=== PATIENT | female | born 1945 | race Caucasian/White ===

== ENCOUNTER 2025-01-29 16:46 | Inpatient (IN) | payer MEDICARE, OTHER, SELFPAY ==
[2025-01-29] VITALS (9 sets, daily range): BP systolic 135–162; BP diastolic 78–97
--- NOTE | 2025-01-29 12:54 | ED.GENMED ---
History of Present Illness
General
Chief Complaint: Rectal Bleeding
Source: patient
Time Seen by Provider: 01/29/25 12:40
History of Present Illness
History of Present Illness:
79-year-old female presents emergent complaining of abdominal pain, rectal bleeding. Patient began feeling unwell last evening with some abdominal cramping followed by loose stools. Early this morning she developed significant cramping and noted
bloody diarrhea. She was going the bathroom every 30 minutes. She did not feel she had a fever. She denies any nausea or vomiting. The frequency of the bloody stool has decreased somewhat to every hour. She does not take any oral
anticoagulants. She did have 1 previous episode of bloody stool which was determined to be related to an infection. She does have regular colonoscopies.
Phy Exam
Physical Exam
Physical Exam:
General: Awake, Alert, Oriented X3. No acute distress.
Vitals: Mildly hypertensive
Head: Atraumatic
Eyes: Pupils equal, EOMI
Throat: Airway intact, no exudates
Neck: Trachea midline
Lungs: Clear and equal b/l
Heart: Regular rate, no murmurs
Abd: Soft, no reproducible abdominal tenderness, No pulsatile mass
Neuro: Nonfocal
Skin: Warm, dry, no rash
Extremities: pulses equal b/l, no edema
Course
Orders/Labs/Results
Orders:
Orders
01/29/25 12:52
Cardiac Monitoring- Treatment ONCE
0.9% Sodium Chloride 500 ml [Nss] 500 ml IV BOLUS
01/29/25 12:53
Electrocardiogram (*1) Stat
Reason for Study: Abdominal Pain
CT Abd/Pel (IV only)-DH only Urgent
Comment:
Reason For Exam: abd pain, bloody stool
EKG- Treatment ONCE
01/29/25 13:38
Complete Blood Count/With Diff Urgent
Comprehensive Metabolic Panel Urgent
Lactic Acid Urgent
Lipase Urgent
01/29/25 13:51
STOOL [C difficile Antigen & Toxins] Urgent
LUISA Source: Feces/Stool
Specimen Description:
Date Specimen was Collected: 01/29/25
Time Specimen was Collected: 13:48
Stool Culture Urgent
LUISA Source: Feces/Stool
Specimen Description:
Date Specimen was Collected: 01/29/25
Time Specimen was Collected: 13:48
01/29/25 15:33
Urinalysis Reflex To Culture Urgent
Date Specimen was Collected: 01/29/25
Time Specimen was Collected: 13:48
01/29/25 15:54
CefTRIAXone [Rocephin] 1,000 mg IV NOW STA
MetroNIDAZOLE 500 MG/100 ML [Flagyl 500 mg] 100 ml IV NOW
01/29/25 16:03
HYDROmorphone [Dilaudid] 0.5 mg IV NOW STA
01/29/25 16:16
Sterile Water [Sterile Water For Injection] 10 ml .ROUTE .STK-MED ONE
01/29/25 16:30
Admit/Transfer Patient As Directed
Co-Sign Provider:
Level of Care: Inpatient admission
Assign to:: Medical/Surgical
Physician / Group: hina edmonds
Diagnosis: lower gi bleed
Reason for Hospitalization: colitis, gi blood loss, iv antibiotics
Expected length of stay greater than two midnights?: Yes
ELOS- Estimated Length of Stay in days: 3
I certify the patient meets the requirements for IP care: Yes
PRN Pain Medication Management As Directed
May give lesser potent ordered pain med per pt: Yes
preference::
Protocol:: Medication orders for pain may be administered in a
manner that supports deferring to patient preference
when the pt is:
- Requesting an ordered lesser potent pain medication.
Least to most potent pain medications are defined
as: acetaminophen < NSAID < tramadol < opioids
(morphine, oxycodone, hydromorphone).
- Requesting a lesser dose of the same medication IF
ORDERED.
- Requesting a less intrusive route of administration
if both routes are prescribed by the provider (PO <
IV).
01/29/25 16:31
Code Status As Directed
Resuscitation Status: Full Code
01/29/25 16:35
Norovirus by PCR Stat
LUISA Source: Feces/Stool
Specimen Description:
Date Specimen was Collected: 01/30/25
Time Specimen was Collected: 13:18
Ova & Parasites Giardia/Crypto AG [Giardia/Cryptosporidium Ag] Stat
LUISA Source: Feces/Stool
Specimen Description:
Date Specimen was Collected: 01/30/25
Time Specimen was Collected: 13:18
Stool Culture Stat
LUISA Source: Feces/Stool
Specimen Description:
Date Specimen was Collected: 01/30/25
Time Specimen was Collected: 13:18
01/29/25 16:38
GASTROINTESTINAL CONSULT Routine
Consulting Provider: Kasia Finley
Was physician already notified: Yes
01/29/25 16:40
Morphine Sulfate 1 mg IV Q6HPRN PRN
01/29/25 16:45
0.9% Sodium Chloride 1000 ml [Nss] 1,000 ml IV 100 mls/hr
01/29/25 18:42
Bisacodyl [Dulcolax] 10 mg RECTAL [id number] PRN
Cholecalciferol (Vitamin D3) [VITAMIN D3 (cholecalciferol)] 25 mcg PO QPM
Docusate W/Senna [Senokot-S] 1 tablet PO BIDPRN PRN
Polyethylene Glycol Powder [Miralax] 17 grams PO DAILYPRN PRN
01/29/25 18:42
Activity As Directed
Activity Level: Encourage Progressive Amb
Pneumatic Compression Sleeves As Directed
Type: Knee high
Vital Signs As Directed
Frequency: Per unit guidelines
Weight As Directed
Frequency: Daily
DX Deep Vein Thrombosis Video Routine
01/29/25 19:15
Atorvastatin [Lipitor] 10 mg PO QPM
01/29/25 21:07
Basic Metabolic Panel Routine
Complete Blood Count/No Diff Routine
01/29/25 22:00
Amlodipine [Norvasc] 5 mg PO HS
Ezetimibe [Zetia] 10 mg PO HS
01/30/25 00:00
MetroNIDAZOLE 500 MG/100 ML [Flagyl 500 mg] 100 ml IV Q8H
01/30/25 Breakfast
Clear Liquid
At Your Request: Limited Participation
01/30/25 07:01
Basic Metabolic Panel IN AM
Complete Blood Count/No Diff IN AM
Ferritin IN AM
Iron IN AM
Total Iron Binding IN AM
Vitamin B12 IN AM
01/30/25 08:00
CefTRIAXone [Rocephin] 1,000 mg IV Q24H
Pantoprazole [Protonix] 20 mg PO DAILY
01/31/25 06:00
Basic Metabolic Panel IN AM
Complete Blood Count/No Diff IN AM
02/01/25 06:00
Basic Metabolic Panel IN AM
Complete Blood Count/No Diff IN AM
02/02/25 06:00
Basic Metabolic Panel IN AM
Complete Blood Count/No Diff IN AM
02/03/25 06:00
Basic Metabolic Panel IN AM
Complete Blood Count/No Diff IN AM
02/04/25 06:00
Basic Metabolic Panel IN AM
Complete Blood Count/No Diff IN AM
Abnormal Lab Results
01/29/25
13:38
WBC 16.8 H 10^3/uL
(4.8-10.8)
Abs Immat Gran (auto) 0.1 H 10^3/uL
(0-0.05)
Absolute Neuts (auto) 15.1 H 10^3/uL
(1.4-6.5)
Absolute Lymphs (auto) 1.0 L 10^3/uL
(1.2-3.4)
Neutrophils % 90.0 H %
(42.2-75.2)
Lymphocytes % 6.0 L %
(20.5-51.1)
BUN 26 H mg/dl
(7-17)
Glucose 119 H mg/dl
(70-99)
01/29/25 13:38
01/29/25 13:38
Vital Signs
Initial and Last Documented VS:
Initial Vital Signs
Temp Pulse Resp BP Pulse Ox
97.8 F 75 18 162/97 96
01/29/25 10:47 01/29/25 10:47 01/29/25 10:47 01/29/25 10:47 01/29/25 10:47
Last Documented Vital Signs
Temp Pulse Resp BP Pulse Ox
98.8 F 78 20 136/78 94
01/30/25 22:22 01/30/25 22:22 01/30/25 22:22 01/30/25 22:22 01/30/25 22:22
MDM/Problems Addressed
Differential Diagnosis Includes:
Infectious colitis, ischemic colitis, diverticular bleeding
MDM/Problems Addressed:
Patient presents with crampy abdominal pain and bloody stool. Labs here show an elevated white blood cell count, normal hemoglobin. Chemistries show mild prerenal azotemia. Urine is normal. CT of the abdomen pelvis shows left-sided colitis.
Will initiate IV antibiotics and hospitalize for further evaluation.
*Radiology
Radiology exam reviewed: radiology read reviewed
*Pulse Oximetry
Patient hypoxic: no
*EKG
Interpreted by ED Provider?: Yes
Heart Rate: 81
Rate: normal
Rhythm: sinus
Rolfe: normal axis
Interval: normal interval
QRS Pattern: normal QRS
Ischemia: no ischemia
*Washery Engineer Interpretation
Rate: normal
Interpretation: normal
Rhythm: sinus
*Critical Care Note
Total Time (30-74mins, 75-104mins- exclusive of procedures): 32 min
comment:
Critical care statement: A total of 32 minutes of critical care time was provided for this patient. This includes management of unstable vital signs, evaluation of the patient at bedside, reviewing the patient�s pertinent medical records, discussion
with consultants, review of old EKGs and review of pertinent medical records. This time with separate from time utilized to perform the aforementioned documented procedures
Patient Management
Social determinants of health affecting care: Strong social support
ED Attending Note
-
Portions of this chart may have been created with voice recognition software.� Occasional wrong word or��sound alike� substitutions may have occurred due to the inherent limitations of voice recognition software.
Discharge Plan
Departure
Patient Disposition: Admit
Date of Disposition: 01/29/25
Time of Disposition: 15:59
Presentation/result/management discussed w/ accepting MD/DO: Hospitalist
Condition: Fair
Discharge Problem:
Colitis, Bloody stools
Interventions
Interventions:
*General Assessment Last Done: 01/29/25 15:53
*Neglect/Abuse Screening Last Done: 01/29/25 15:53
*ED- Fall Risk Assessment Last Done: 01/29/25 15:53
*Nursing Disposition Last Done: 01/29/25 18:39
EQ-Bmxnpd-Ndsflbfshz Assessment Last Done: 01/29/25 15:53
ED- Cardiac Assessment Last Done: 01/29/25 15:53
ED- Pulmonary Assessment Last Done: 01/29/25 15:53
Discharge Date and Time
Discharge Date/Time: 01/29/25 18:41
[2025-01-29 13:47] LABS: % Basophils 0.2 % (0-2); % Immature Granulocytes 0.3 % (0-0.5); % Monocytes 3.5 % (1.7-9.3); Absolute Immature Granulocytes 0.1 10^3/uL (0-0.05); Absolute Monocytes 0.6 10^3/uL (0.1-0.6); Absolute Neutrophils 15.1 10^3/uL (1.4-6.5); Hematocrit 42.6 % (37.0-47.0); Hemoglobin 14.2 g/dL (12.0-16.0); Mean Corp Hgb Conc. 33.3 g/dL (33.0-37.0); Mean Corpuscular Hgb 28.5 pg (27.0-31.0); Mean Corpuscular Volume 85.5 fL (81.0-99.0); Mean Platelet Volume 8.9 fL (7.4-10.4); Nucleated Red Blood Cells % 0 %; Platelet Count 339 10^3/uL (130-400); Red Blood Cell Count 4.98 10^6/uL (4.20-5.40); Red Cell Dist. Width 14.1 % (11.5-14.5); White Blood Cell Count 16.8 10^3/uL (4.8-10.8)
[2025-01-29 14:00] LABS: Lactic Acid 1.9 mmol/L (0.7-2.0)
[2025-01-29 14:02] LABS: ALT (SGPT) 20 U/L (0-35); AST (SGOT) 29 U/L (14-36); Albumin 4.4 g/dl (3.5-5.0); Alkaline Phosphatase 120 U/L (38-126); Blood Urea Nitrogen 26 mg/dl (7-17); Calcium 10.2 mg/dl (8.4-10.2); Carbon Dioxide 26 mmol/L (22-30); Chloride 105 mmol/L (98-107); Glucose 119 mg/dl (70-99); Lipase 95 U/L (23-300); Sodium 139 mmol/L (135-145); Total Bilirubin 0.6 mg/dl (0.2-1.3); Total Protein 7.3 g/dl (6.3-8.2); eGFR > 60.00
[2025-01-29] MEDS: NSS 500 IV (14:09)
[2025-01-29 15:45] LABS: Urine Albumin Negative (Neg - Trace); Urine Bilirubin Negative (Negative); Urine Character Clear (Clear); Urine Color Yellow; Urine Glucose Negative (Negative); Urine Ketone Negative (Negative); Urine Leukocyte Negative (Negative); Urine Nitrite Negative (Negative); Urine Occult Blood Negative (Negative); Urine Specific Gravity 1.005 (<1.030); Urine Urobilinogen Negative (Neg - 1+)
[2025-01-29] MEDS: DILAUDID 0.5 MG IV (16:20)
[2025-01-29] MEDS: FLAGYL 500 MG 100 IV ×2 (16:20→23:07)
[2025-01-29] MEDS: ROCEPHIN 1000 MG IV (16:20)
--- NOTE | 2025-01-29 17:00 | HPS.HSE ---
Family Physician
-
Family Physician: Willow Ramirez MD
Chief Complaint
-
diarrhea
History of Present Illness
79 female history of hypertension hyperlipidemia GERD vitamin D deficiency who presents with acute onset diarrhea that began last night at around 8 PM with multiple watery bowel movements up until midnight when it transformed into mario blood with
clots that was associated with abdominal cramping in the lower abdomen that would come and go and soon after would be in the toilet. It should be noted that this began after eating a whole box of peeps 2 hours prior to the diarrhea. Did note that
everyone in the household otherwise had the same food prior to that apart from her being the only one who ate the beeps. Since being in the ER she has had 5 movements that have been bright red along with clots without any stool.
She is hemodynamically stable with a white count of 16.8 and a hemoglobin of 14.2 and a BMP that is unremarkable. CT that is demonstrating colitis involving the descending colon diffusely and extending into the sigmoid colon. There is inflammation
in the mesentery surrounding the descending colon but no evidence of an abscess collection.
While in the ED she received 500 cc bolus x 1 along with analgesic support.
GI history colonoscopies every 5 years last colonoscopy September 2023 noted to have 1 small polyp that was removed with a recommendation to repeat colonoscopy in 5 years
Surgical history of bunion repair
Social history former smoker quit 2017, does not drink alcohol does not use drugs
Father unknown history as he is from a drunk medical driver. Mother from pancreatic cancer. Brother from brain cancer. Sister has heart failure diabetes factor V Leiden deficiency
Medical History
Past Medical History
Past Medical History: Reports GERD, HTN and Hypercholesterolemia
Past Surgical History: Reports Other
Social History
Tobacco: Former Smoker
Alcohol: None
Family History
Family History: CAD, Cancer, Diabetes and Hypertension
Allergies / Home Medications
Allergies reflects when Allergies were last updated in [employer].
Home Medications with original date entered in [employer]
Allergy/Medication List:
Allergies
Allergy/AdvReac Type Severity Reaction Status Date / Time
Penicillins Allergy Unknown Verified 01/29/25 10:47
Home Medications
amlodipine 5 mg tablet (Norvasc) 5 mg PO HS 01/29/25
cholecalciferol (vitamin D3) 25 mcg (1,000 unit) tablet (Vitamin D3) 25 mcg PO QPM 01/29/25
ezetimibe 10 mg tablet (Zetia) 10 mg PO HS 01/29/25
pantoprazole 20 mg tablet,delayed release (Protonix) 20 mg PO DAILY 01/29/25
simvastatin 20 mg tablet (Zocor) 20 mg PO HS 01/29/25
Review of Systems
-
A 12 point ROS was completed and negative except as noted: Yes
Physical Exam
Vital Signs
Vital Signs
Temp Pulse Resp BP Pulse Ox
97.8 F 71 18 156/83 93
01/29/25 10:47 01/29/25 15:00 01/29/25 15:00 01/29/25 15:00 01/29/25 15:00
Physical Exam
General: Well Developed
Laboratory Results
-
01/29/25 13:38
Laboratory Results
Lactic Acid 1.9 mmol/L (0.7-2.0) 01/29/25 13:38
Total Bilirubin 0.6 mg/dl (0.2-1.3) 01/29/25 13:38
AST 29 U/L (14-36) 01/29/25 13:38
ALT 20 U/L (0-35) 01/29/25 13:38
Alkaline Phosphatase 120 U/L (38-126) 01/29/25 13:38
Lipase 95 U/L (23-300) 01/29/25 13:38
Impression/Plan
-
NAD
Scleral Anicteric
DMM
No JVD
CTABL
RRR, S1/S2
Soft, NT, ND, BS+
Warm, Dry
AAOx3
Calm
Bright red blood per rectum
-Differential diagnosis includes infectious colitis, inflammatory bowel disease unlikely, AVMs, internal hemorrhoids
-IV fluids
-Repeat CBC in the evening as initial labs could be hemoconcentrated as she is grossly volume down
-Analgesics
-Antiemetics
-IV antibiotics with Rocephin and metronidazole
-Stool culture C. difficile norovirus ova parasite
Leukocytosis
-Could be related to acute infection or could be reactive
-Started on antibiotics
-Monitor for fevers if develops then would obtain blood culture
Hyperlipidemia
Continue Zetia and simvastatin
GERD
Continue Protonix
Hypertension
Continue Norvasc
[2025-01-29] MEDS: NSS 1000 IV (20:04)
[2025-01-29] MEDS: LIPITOR 10 MG PO (20:11)
[2025-01-29] MEDS: NORVASC 5 MG PO (20:11)
[2025-01-29] MEDS: VITAMIN D3 (cholecalciferol) 25 MCG PO (20:11)
[2025-01-29] MEDS: ZETIA 10 MG PO (20:11)
[2025-01-29] MEDS: MORPHINE SULFATE 1 MG IV (20:23)
[2025-01-29 21:16] LABS: Hematocrit 36.5 % (37.0-47.0); Hemoglobin 12.5 g/dL (12.0-16.0); Mean Corp Hgb Conc. 34.2 g/dL (33.0-37.0); Mean Corpuscular Hgb 29.1 pg (27.0-31.0); Mean Corpuscular Volume 84.9 fL (81.0-99.0); Mean Platelet Volume 8.6 fL (7.4-10.4); Platelet Count 299 10^3/uL (130-400); Red Cell Dist. Width 14.3 % (11.5-14.5); White Blood Cell Count 17.5 10^3/uL (4.8-10.8)
[2025-01-29 21:31] LABS: Blood Urea Nitrogen 18 mg/dl (7-17); Calcium 9.3 mg/dl (8.4-10.2); Carbon Dioxide 25 mmol/L (22-30); Chloride 104 mmol/L (98-107); Glucose 117 mg/dl (70-99); Potassium 3.9 mmol/L (3.5-5.1); Sodium 136 mmol/L (135-145); eGFR > 60.00
[2025-01-29] MEDS: ZOFRAN 4 MG IV (23:06)
[2025-01-29] MEDS: DILAUDID 0.25 MG IV (23:07)
[2025-01-30 06:00] VITALS: BMI 26.5
[2025-01-30] MEDS: DILAUDID 0.25 MG IV (06:07)
[2025-01-30] MEDS: PROTONIX IV 40 MG IV ×3 (06:07→19:58)
[2025-01-30] MEDS: NSS 1000 IV ×2 (06:07→16:36)
[2025-01-30 07:00] VITALS: BP 119/69
[2025-01-30] MEDS: FLAGYL 500 MG 100 IV ×3 (07:59→23:36)
[2025-01-30] MEDS: STERILE WATER FOR INJECTION 10 ML IV (08:00)
[2025-01-30] MEDS: ROCEPHIN 1000 MG IV (08:00)
[2025-01-30 08:07] LABS: Hematocrit 33.6 % (37.0-47.0); Hemoglobin 11.5 g/dL (12.0-16.0); Mean Corp Hgb Conc. 34.2 g/dL (33.0-37.0); Mean Corpuscular Volume 84.8 fL (81.0-99.0); Mean Platelet Volume 9.2 fL (7.4-10.4); Platelet Count 282 10^3/uL (130-400); Red Blood Cell Count 3.96 10^6/uL (4.20-5.40); Red Cell Dist. Width 14.1 % (11.5-14.5); White Blood Cell Count 16.1 10^3/uL (4.8-10.8)
[2025-01-30 08:21] LABS: Blood Urea Nitrogen 13 mg/dl (7-17); Calcium 9.1 mg/dl (8.4-10.2); Carbon Dioxide 25 mmol/L (22-30); Chloride 107 mmol/L (98-107); Estimated Creatinine Clearance 63 ml/min; Glucose 104 mg/dl (70-99); Iron 56 ug/dl (37-170); Potassium 3.8 mmol/L (3.5-5.1); Sodium 138 mmol/L (135-145); eGFR > 60.00
[2025-01-30 08:29] LABS: Percent Saturation 20 % (20-50); Total Iron Binding Capacity 277 ug/dl (265-497)
[2025-01-30 08:50] LABS: Ferritin 37.4 ng/ml (11.1-264.0)
[2025-01-30 09:05] LABS: Vitamin B12 739 pg/ml (239-931)
--- NOTE | 2025-01-30 09:30 | CON.GI ---
Addendum entered and electronically signed by Yelena Martino DO 01/30/25 16:20:
Patient seen and examined independently of CANDICE. I agree with her note with my additions below
Raya is a 79-year-old female with history of constipation who comes in with acute onset abdominal cramping pain multiple brown episodes of diarrhea that turned bloody with having only blood about every 30 minutes. She denies any sick contacts.
No one at home with anything similar. No unusual foods. Denies any fever or chills. She was extremely nauseated and felt like she was going to vomit at the time of the initial onset but never vomited. The pain is improving and her fecal output
is much less.
She has a persistent leukocytosis around 16,000, hemoglobin unclear baseline and currently at 11.5, Normal platelets of 282, BUN normalized initially at 26 down to 13 normal LFTs, normal lipase, B12, ferritin imaging including a CT abdomen pelvis
with IV contrast only shows left-sided colitis with some mild mesenteric stranding but no evidence of an abscess.
Patient does not take anything for constipation unless as needed which sounds like a stool softener on rare occasion. Last time she saw any rectal bleeding was 10 years ago when she had a suspected infectious colitis. Her last colonoscopy was in
2022 at [facility] and subjectively only a small polyp.
#Hemodynamically stable hematochezia
-- No transfusion requirement
-- Etiology likely infectious versus ischemic versus stercoral colitis
-- No current fever but persistent leukocytosis and will change antibiotics to Levaquin and continue the Flagyl
-- She appears to be improving, lactic acid is normal, IV fluids, prevent hypotension
-- Does not significantly improved by tomorrow consider flexible sigmoidoscopy
-- Full liquid diet for now
-- Twice daily PPI for now
-Patient's C. difficile was negative, culture pending
-- Discussed with family at bedside
Original Note:
Consultation
-
Date/Time Consultation Requested: 01/29/25 [id number]
Date/Time Consultation Performed: 01/30/25- 0930
Requesting Provider: Patrick Durán MD
Performing Provider: CANDICE Stokes, Yelena Martino DO
Reason for Consultation: colitis
Medical History
Chief Complaint / HPI
Chief Complaint: abdominal pain, rectal bleeding
History of Present Illness:
Pt is a 79yo with hx GERD, HTN, hypercholesterolemia, vitamin D deficiency with no prior admission with onset of crampy lower abdominal pain then passing ball like stool then large volume dark bloody stools. On admission she was noted with WBC
16,800, hbg 14.2 with drop to 11.5 after admission, glucose 104 with otherwise stable labs. CT on admission with colitis in descending colon extending to sigmoid. In review with patient hx colitis ? infectious 10 years ago then diverticulitis
about 6 years ago. She was following with Dr. Munroe at [facility] in [place] but now moved with [facility]. She is due to see new MD in [place] for GI care at end of month. No recent travel, abx, or sick contacts.
Pt states pain improving now 3/10 still with blood but less. She is tolerating liquid diet. She has hx GERD currently on Protonix daily prior to admission. She also admits to chronic constipation with no laxative regiment. She otherwise
admits to nausea with pain now improved and denies chronic dysphagia, odynophagia, or diarrhea. Rare NSAID use. No anticoagulation. Last colonoscopy September 2023 recall small polyp otherwise stable.
01/29/25 CT Abd/Pel (IV only)- only
There is colitis involving the descending colon diffusely and extending into the sigmoid colon. There is inflammation in the mesentery surrounding the descending colon but no evidence of an abscess collection.
Past Medical History
Past Medical History: GERD, HTN, Hypercholesterolemia and Other (vitamin D deficiency)
Social History
Tobacco: Former Smoker (quit 2017 )
Alcohol: None
Drug: None
Personal:
Living: With Family
Employment: Retired
Family History
Family History: Other (mother with pancreatic CA)
Allergies / Home Medications
Allergy/AdvReac Type Severity Reaction Status Date / Time
Penicillins Allergy Unknown Verified 01/29/25 10:47
�Medication �Instructions �Recorded
amlodipine 5 mg tablet (Norvasc) 5 mg PO HS 01/29/25
cholecalciferol (vitamin D3) 25 25 mcg PO QPM 01/29/25
mcg (1,000 unit) tablet (Vitamin
D3)
ezetimibe 10 mg tablet (Zetia) 10 mg PO HS 01/29/25
pantoprazole 20 mg tablet,delayed 20 mg PO DAILY 01/29/25
release (Protonix)
simvastatin 20 mg tablet (Zocor) 20 mg PO HS 01/29/25
Review of Systems
-
History Source: Patient
Constitutional: Reports No Symptoms
EENT: Reports No Symptoms
Respiratory: Reports No Symptoms
Abdomen/GI: Reports Abdominal Pain, Nausea (with onset now improved ), Constipated (chronic issue ) and Bloody Stools
: Reports No Symptoms
Musculoskeletal: Reports No Symptoms
Skin: Reports No Symptoms
Neurological: Reports No Symptoms
Endocrine: Reports No Symptoms
Hematologic/Lymphatic: Reports Bleeding
Vital Signs
Temp Pulse Resp BP Pulse Ox
98.0 F 68 16 119/69 92
01/30/25 07:00 01/30/25 07:00 01/30/25 07:00 01/30/25 07:00 01/30/25 07:00
Physical Exam
Exam
General: Well Developed, Well Nourished and No Apparent Distress
HEENT: Normocephalic and Anicteric
Respiratory: Clear
Cardiac: Regular Rhythm
GI: Soft, Non Distended and Tender (lower abdomen )
Musculoskeletal: No Clubbing and No Cyanosis
Skin: Warm and Dry
Neuro: Awake, Alert and AO x 3
Psych: Calm
Results
WBC 16.1 10^3/uL (4.8-10.8) H 01/30/25 07:01
Hgb 11.5 g/dL (12.0-16.0) L 01/30/25 07:01
Hct 33.6 % (37.0-47.0) L 01/30/25 07:01
MCV 84.8 fL (81.0-99.0) 01/30/25 07:01
Plt Count 282 10^3/uL (130-400) 01/30/25 07:01
Absolute Neuts (auto) 15.1 10^3/uL (1.4-6.5) H 01/29/25 13:38
Sodium 138 mmol/L (135-145) 01/30/25 07:01
Potassium 3.8 mmol/L (3.5-5.1) 01/30/25 07:
Chloride 107 mmol/L (98-107) 01/30/25 07:01
Carbon Dioxide 25 mmol/L (22-30) 01/30/25 07:01
BUN 13 mg/dl (7-17) 01/30/25 07:01
Creatinine 0.6 mg/dL (0.6-1.0) 01/30/25 07:01
Calcium 9.1 mg/dl (8.4-10.2) 01/30/25 07:01
Total Bilirubin 0.6 mg/dl (0.2-1.3) 01/29/25 13:38
AST 29 U/L (14-36) 01/29/25 13:38
ALT 20 U/L (0-35) 01/29/25 13:38
Alkaline Phosphatase 120 U/L (38-126) 01/29/25 13:38
Lipase 95 U/L (23-300) 01/29/25 13:38
Diagnostic Image Results:
01/29/25 CT Abd/Pel (IV only)-DH only
There is colitis involving the descending colon diffusely and extending into the sigmoid colon. There is inflammation in the mesentery surrounding the descending colon but no evidence of an abscess collection.
Prior GI Procedures:
Colonoscopy: last 2022 small polyp per patient recall -- [facility] Dr. Munroe
Assessment / Plan
-
Pt is a 79yo with hx GERD, HTN, hypercholesterolemia, vitamin D deficiency with no prior admission with onset of crampy lower abdominal pain then passing ball like stool then large volume dark bloody stools. On admission she was noted with WBC
16,800, hbg 14.2 with drop to 11.5 after admission, glucose 104 with otherwise stable labs. CT on admission with colitis in descending colon extending to sigmoid. In review with patient hx colitis ? infectious 10 years ago then diverticulitis
about 6 years ago. She was following with Dr. Munroe at [facility] in [place] but now moved with [facility]. She is due to see ankita LEBRON in [place] for GI care at end of month.
-descending/sigmoid colitis with abdominal pain and rectal bleeding
-leukocytosis
-chronic constipation
-hx colitis 10 years ago, diverticulitis 6 years ago
-hx colon polyps
other med problems:
-GERD
-HTN
-hypercholesterolemia
-family hx panc CA- mother
PLAN:
Etiology of colitis related to infectious etiology, ischemic, vs other -- pt also with chronic constipation prior to onset
pt feeling improved still with some blood this am but less
tolerating clears--ok for full liquid lunch then low residue later today if improving
cont abx
trend labs c-diff neg other cx pending
maintain adequate perfusion
discussed adding bowel regiment when diet advanced -- consider Miralax daily then add fiber supplement in 2-4 week when improved from current colitis
cont PPI with hx GERD
pt due GI follow up end of month in [place]-with ankita LEBRON to establish care as moved from [facility]- I gave her copy of CT for follow up visit
reviewed with nursing staff
-
-
Thank you for consultation and allowing me to participate in the patient's care. Please call the occupational work experience teacher GI physician during the after hours with any questions or concerns.
--- NOTE | 2025-01-30 12:32 | CM ---
CM reviewed chart, patient seen bedside, initial assessment completed. Patient resides with her in a two level home, no steps to enter, 12 steps to second floor. Patient reports her daughter who is a nurse lives three houses down. Patient
reports when needed they will be putting in a chair lift. Patient denies use of DME, VN/SNF history. Patient confirms PCP Willow Ramirez, pharmacy [facility], confirms prescription coverage through [facility]. Patient reports no needs upon
discharge, requesting medical records upon discharge. CM will continue to follow for all discharge planning needs.
Plan; home no needs likely.
--- NOTE | 2025-01-30 12:59 | W.PN.HOSP.TC ---
Today's Communication/Plan
-
Assessment / Plan
Assessment / Plan
NAD
Scleral Anicteric
DMM
No JVD
CTABL
RRR, S1/S2
Soft, NT, ND, BS+
Warm, Dry
AAOx3
Calm
Bright red blood per rectum
-Downtrending hemoglobin
-Continue to monitor though hemodynamically stable
-Differential diagnosis includes infectious colitis, inflammatory bowel disease unlikely, AVMs, internal hemorrhoids
-IV fluids
-Repeat CBC in the evening as initial labs could be hemoconcentrated as she is grossly volume down
-Analgesics
-Antiemetics
-IV antibiotics with Rocephin and metronidazole
-C. difficile negative. Shigella Salmonella Campylobacter Shigella toxin pending
Leukocytosis
-Could be related to acute infection or could be reactive
-Started on antibiotics
-Monitor for fevers if develops then would obtain blood culture
Hyperlipidemia
Continue Zetia and simvastatin
GERD
Continue Protonix
Hypertension
Continue Norvasc
Anticipated Discharge: 24 - 48 hours
Subjective/Interval History
-
Date of Service: January 30, 2025
Seen and examined. No new complaints. No acute overnight events.
Continues to have bright red blood per rectum notes smaller amounts darker in color than previous
Objective Data
-
Labs:
Laboratory Results
01/30/25
07:01
WBC 16.1 H
Hgb 11.5 L
Hct 33.6 L
Plt Count 282
Sodium 138
Potassium 3.8
Chloride 107
Carbon Dioxide 25
BUN 13
Creatinine 0.6
Glucose 104 H
Calcium 9.1
Vital Signs:
Vital Signs
Temp Pulse Resp BP Pulse Ox
98.0 F 68 16 119/69 92
01/30/25 07:00 01/30/25 07:00 01/30/25 07:00 01/30/25 07:00 01/30/25 08:10
I&O
01/29/25 01/30/25 01/31/25
06:59 06:59 06:59
Intake Total 240 / 240
Balance 240 / 240
[2025-01-30 15:00] VITALS: BP 129/73
[2025-01-30] MEDS: LEVAQUIN 150 IV (16:36)
[2025-01-30] MEDS: VITAMIN D3 (cholecalciferol) 25 MCG PO (17:21)
[2025-01-30] MEDS: LIPITOR 10 MG PO (17:21)
[2025-01-30] MEDS: NSS (PRESERVATIVE FREE) 10 ML IV (19:58)
[2025-01-30] MEDS: NORVASC 5 MG PO (22:16)
[2025-01-30] MEDS: ZETIA 10 MG PO (22:16)
[2025-01-30 22:22] VITALS: BP 136/78
[2025-01-31] MEDS: NSS IV (01:03)
[2025-01-31] MEDS: NSS 1000 IV (05:44)
[2025-01-31 06:00] VITALS: BMI 26.4
[2025-01-31 07:30] VITALS: BP 131/71
[2025-01-31 07:54] LABS: Hematocrit 34.3 % (37.0-47.0); Hemoglobin 11.5 g/dL (12.0-16.0); Mean Corp Hgb Conc. 33.5 g/dL (33.0-37.0); Mean Corpuscular Hgb 28.8 pg (27.0-31.0); Mean Platelet Volume 9.1 fL (7.4-10.4); Platelet Count 267 10^3/uL (130-400); Red Blood Cell Count 3.99 10^6/uL (4.20-5.40); Red Cell Dist. Width 14.1 % (11.5-14.5); White Blood Cell Count 13.1 10^3/uL (4.8-10.8)
[2025-01-31] MEDS: FLAGYL 500 MG 100 IV ×2 (08:11→15:06)
[2025-01-31] MEDS: MIRALAX 17 GRAMS PO (08:12)
[2025-01-31] MEDS: NSS (PRESERVATIVE FREE) 10 ML IV (08:12)
[2025-01-31] MEDS: PROTONIX IV 40 MG IV (08:12)
[2025-01-31 08:15] LABS: Blood Urea Nitrogen 7 mg/dl (7-17); Calcium 9.4 mg/dl (8.4-10.2); Carbon Dioxide 26 mmol/L (22-30); Chloride 109 mmol/L (98-107); Estimated Creatinine Clearance 47 ml/min; Glucose 94 mg/dl (70-99); Potassium 3.7 mmol/L (3.5-5.1); Sodium 140 mmol/L (135-145); eGFR > 60.00
--- NOTE | 2025-01-31 09:43 | CM ---
Addendum entered by Ariadna Hernadez 01/31/25 14:57:
Patient seen, for discharge today. Patient provided with medical records form. IMM reviewed verbally, agreeable to discharge, provided with copy, placed in chart. Patient reports her spouse and daughter will be providing transportation home.
Plan; home no needs.
Original Note:
CM reviewed chart, patient seen bedside. Patient reports no concerns to CM at this time, CM will continue to be available for all discharge planning needs. Patient requesting medical records upon discharge.
Plan; home no needs likely.
--- NOTE | 2025-01-31 14:03 | W.PN.GI.CBS2 ---
Today's Communication / Plan
-
-- agree with continuing antibiotics
-- patient improving
--discharge soon
-- GI follow up outpatient
Assessment / Plan
-
Pt is a 79yo with hx GERD, HTN, hypercholesterolemia, vitamin D deficiency with no prior admission with onset of crampy lower abdominal pain then passing ball like stool then large volume dark bloody stools. On admission she was noted with WBC
16,800, hbg 14.2 with drop to 11.5 after admission, glucose 104 with otherwise stable labs. CT on admission with colitis in descending colon extending to sigmoid. In review with patient hx colitis ? infectious 10 years ago then diverticulitis
about 6 years ago. She was following with Dr. Munroe at [facility] in [place] but now moved with [facility]. She is due to see ankita LEBRON in [place] for GI care at end of month.
-descending/sigmoid colitis with abdominal pain and rectal bleeding
-leukocytosis
-chronic constipation
-hx colitis 10 years ago, diverticulitis 6 years ago
-hx colon polyps
other med problems:
-GERD
-HTN
-hypercholesterolemia
-family hx panc CA- mother
#Hemodynamically stable hematochezia
-- No transfusion requirement
-- Etiology likely infectious versus ischemic versus stercoral colitis
--Patient's Giardia was positive however the bleeding and the degree of colitis is not consistent With giardiasis
-- No current fever but persistent leukocytosis and would continue antibiotics to Levaquin and continue the Flagyl - give 6 more days
-- She appears to be improving, lactic acid is normal, IV fluids, prevent hypotension
-- normal diet is fine
-Patient's C. difficile was negative, culture pending
-- has [place] [facility] appt and will need a colonoscopy and establish care
-- avoid constipation - discussed miralax after this colitis episode is over
Subjective
Subjective
Date of Service: January 31, 2025
Patient had 1 bloody stool today and then 4 more that were more brown in color with no further blood. Still some mild abdominal cramping and discomfort
Objective
Data Reviewed
Laboratory Data:
Laboratory Results
01/31/25 07:10
01/31/25 07:10
Laboratory Results
Total Bilirubin 0.6 mg/dl (0.2-1.3) 01/29/25 13:38
AST 29 U/L (14-36) 01/29/25 13:38
ALT 20 U/L (0-35) 01/29/25 13:38
Alkaline Phosphatase 120 U/L (38-126) 01/29/25 13:38
Lipase 95 U/L (23-300) 01/29/25 13:38
Vital Signs and I&O:
Vital Signs
Temp Pulse Resp BP Pulse Ox
98.0 F 68 20 131/71 95
01/31/25 07:30 01/31/25 07:30 01/31/25 07:30 01/31/25 07:30 01/31/25 08:15
I&O
01/30/25 01/31/25 02/01/25
06:59 06:59 06:59
Intake Total 240 / 240 2180 / 2180
Balance 240 / 240 2180 / 2180
Physical Exam
Physical Exam
HEENT: Anicteric
GI: Soft and Tender (Improved but still mildly tender)
Extremities: No Edema
Neuro: Non Focal
--- NOTE | 2025-01-31 14:04 | W.PN.HOSP.TC ---
Today's Communication/Plan
-
DC home
More than 30 minutes spent in discharge including
Final examination of the patient
Summarizing hospital stay
Instructions for continuing care to all relevant caregivers
Preparation of discharge records, prescriptions, and referral forms
Total time spent (in minutes): 33mins
Assessment / Plan
Assessment / Plan
NAD
Scleral Anicteric
DMM
No JVD
CTABL
RRR, S1/S2
Soft, NT, ND, BS+
Warm, Dry
AAOx3
Calm
Bright red blood per rectum, Giardia positive
-Downtrending hemoglobin
-Continue to monitor though hemodynamically stable
-Differential diagnosis includes infectious colitis, inflammatory bowel disease unlikely, AVMs, internal hemorrhoids
-IV fluids
-Repeat CBC in the evening as initial labs could be hemoconcentrated as she is grossly volume down
-Analgesics
-Antiemetics
-IV antibiotics with levofloxacin and metronidazole, transition to p.o. metronidazole 500 mg p.o. twice daily x 6 days along with levofloxacin 750 mg daily x 6 days
-C. difficile negative.
- Rest of stool culture negative
Leukocytosis -resolved
-Could be related to acute infection or could be reactive
-Started on antibiotics
-Monitor for fevers if develops then would obtain blood culture
Hyperlipidemia
Continue Zetia and simvastatin
GERD
Continue Protonix
Hypertension
Continue Norvasc
DC home
Anticipated Discharge: Today
Subjective/Interval History
-
Date of Service: January 31, 2025
Seen and examined. No new complaints. No acute overnight events.
Objective Data
-
Labs:
Laboratory Results
01/31/25
07:10
WBC 13.1 H
Hgb 11.5 L
Hct 34.3 L
Plt Count 267
Sodium 140
Potassium 3.7
Chloride 109 H
Carbon Dioxide 26
BUN 7
Creatinine 0.8
Glucose 94
Calcium 9.4
Vital Signs:
Vital Signs
Temp Pulse Resp BP Pulse Ox
98.0 F 68 20 131/71 95
01/31/25 07:30 01/31/25 07:30 01/31/25 07:30 01/31/25 07:30 01/31/25 08:15
I&O
01/30/25 01/31/25 02/01/25
06:59 06:59 06:59
Intake Total 240 / 240 2180 / 2180
Balance 240 / 240 2180 / 2180
--- NOTE | 2025-01-31 14:06 | W.DCSUMMARY ---
Discharge Summary
Discharge Data
Date of Admission: 01/29/25
Date of Discharge: 01/31/25
-
Pending Results: No
Hospital Course
79 female history of hypertension hyperlipidemia GERD vitamin D deficiency
Presented with diarrhea that progressively got worse and turned into bloody diarrhea. Hemoglobin on admission was 14 and then began to trend down thereafter. This is likely due to some diarrheal losses and hemodilution as there is significant
amount of hypovolemia noted without electrolyte/kidney injury. CT abdomen pelvis was obtained that demonstrated colitis involving the distal descending colon diffusely extending into the sigmoid colon. Inflammation in the mesentery surrounding the
descending colon but no evidence of abscess collection. Started on IV antibiotics with Flagyl and Rocephin. Stool studies were obtained and gastroenterology was consulted. Gastroenterology recommended to continue Flagyl however discontinued
Rocephin and started Levaquin. Stool studies were unremarkable apart from culture that demonstrated Giardia. Throughout the hospitalization diarrhea had improved with no further episodes and hemoglobin stabilized at 11.5 on simultaneous days.
Discussed case with gastroenterology will discharge home on metronidazole 500 mg twice a day for 6 days and Levaquin 750 mg daily for 6 days.
Avoid eating sugary foods outpatient PCP and gastroenterology follow-up.
Discharge Plan
-
Patient Disposition: Home (Routine Discharge)
Discharge Diagnosis/Procedures: Gastroenteritis secondary to Giardia
Bloody diarrhea
Condition: Good
Diet: As tolerated
Activity: As tolerated
Activity Restrictions/Additional Instructions:
Presented with diarrhea that progressively got worse and turned into bloody diarrhea. Hemoglobin on admission was 14 and then began to trend down thereafter. This is likely due to some diarrheal losses and hemodilution as there is significant
amount of hypovolemia noted without electrolyte/kidney injury. CT abdomen pelvis was obtained that demonstrated colitis involving the distal descending colon diffusely extending into the sigmoid colon. Inflammation in the mesentery surrounding the
descending colon but no evidence of abscess collection. Started on IV antibiotics with Flagyl and Rocephin. Stool studies were obtained and gastroenterology was consulted. Gastroenterology recommended to continue Flagyl however discontinued
Rocephin and started Levaquin. Stool studies were unremarkable apart from culture that demonstrated Giardia. Throughout the hospitalization diarrhea had improved with no further episodes and hemoglobin stabilized at 11.5 on simultaneous days.
Discussed case with gastroenterology will discharge home on metronidazole 500 mg twice a day for 6 days and Levaquin 750 mg daily for 6 days.
Avoid eating sugary foods outpatient PCP and gastroenterology follow-up.
Referrals:
Willow Ramirez MD [Family Provider] -
Kasia Finley DO [Active] - in two to four weeks
Additional Discharge Medication Instructions: Follow up with with Gastroenterology in [place] at end of Month as already scheduled
Prescriptions:
New
metronidazole 500 mg tablet
500 mg PO BID Qty: 12 0RF
levofloxacin 750 mg tablet
750 mg PO DAILY Qty: 6 0RF
Continued
amlodipine [Norvasc] 5 mg Tablet
5 mg PO HS
pantoprazole [Protonix] 20 mg Tablet,Delayed Release (Dr/Ec)
20 mg PO DAILY
simvastatin [Zocor] 20 mg Tablet
20 mg PO HS
ezetimibe [Zetia] 10 mg Tablet
10 mg PO HS
cholecalciferol (vitamin D3) [Vitamin D3] 25 mcg (1,000 unit) Tablet
25 mcg PO QPM
Discharge Orders:
Discharge Patient (As Directed); Ordered 01/31/25
Ordered By: Patrick Durán
Discharge Date and Time
Print Language: SWEDISH
[2025-01-31 16:19] VITALS: BP 122/71
== END 2025-01-31 17:07 | disposition home or self-care (01) | DRG 392 ==
LOC: 4 WEST ACU 16:46
PROVIDERS: ADMITTING PHYSICIAN Hospitalist; EMERGENCY PHYSICIAN Emergency Medicine; FAMILY PHYSICIAN Student in an Organized Health Care Education/Training Program; OTHER PHYSICIAN Internal Medicine
DX: A09 Infectious gastroenteritis and colitis, unspecified (principal); Z87.891 Personal history of nicotine dependence; Z83.3 Family history of diabetes mellitus; Z82.49 Family history of ischemic heart disease and other diseases of the circulatory system; Z83.2 Family history of diseases of the blood and blood-forming organs and certain disorders involving the immune mechanism; K21.9 Gastro-esophageal reflux disease without esophagitis; I10 Essential (primary) hypertension; E78.00 Pure hypercholesterolemia, unspecified; K59.09 Other constipation
CPT/HCPCS: 74177; 80048; 80053; 81003; 82607; 82728; 83540; 83550; 83605; 83690; 85025; 85027; 87045; 87046; 87324; 87328; 87329; 87427; 87449; 87798; 93005; 96361; 96365; 96375; 99285; Q9967